=== PATIENT | male | born 2005 | race Two or more races ===

== ENCOUNTER 2024-10-26 11:42 | Emergency (ER) | payer SELFPAY ==
[2024-10-26 12:21] VITALS: BP 146/90; PULSE 103; O2SAT 98; BMI 24.8
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
[2024-10-26 12:36] VITALS: BP 125/58; PULSE 98; RESP 16; O2SAT 99
[2024-10-26 13:07] VITALS: BP 125/58; PULSE 98; RESP 16; TEMP 36.6; O2SAT 99
== END 2024-10-26 13:08 | disposition home or self-care (01) ==
PROVIDERS: Emergency Provider Emergency Medicine
DX: F10.10 Alcohol abuse, uncomplicated (principal); Y90.9 Presence of alcohol in blood, level not specified
CPT/HCPCS: 99282; 99284